=== PATIENT | female | born 1925 | race Caucasian/White ===

== ENCOUNTER 2016-05-31 17:51 | Inpatient (IN) | payer BC ==
--- NOTE | ~2016-05-31 | DS ---
Discharge Summary [id number] [place]. [address] NAME: JEREMI LOERA : [birth year] STATUS : DIS IN PAT#: [id number] AGE: 89 ADM/REG DATE : 05/31/16 MR#: [id number] REPORT SERV DATE: 06/04/16 DICTATED BY: MACK CHAN DATE: 06/03/16 REPORT STATUS : Draft TRANSCRIBED BY: MODL DATE: 06/03/16 ADMISSION DATE: 05/31/2016 DISCHARGE DATE: 06/03/2016 PRINCIPAL DIAGNOSIS: Humerus fracture. SECONDARY DIAGNOSIS: 1. Gait disorder. 2. Atrial fibrillation. 3. History of stroke with late effect. 4. Vascular dementia. 5. Leukocytosis. HISTORY OF PRESENT ILLNESS: Please see Dr. Calvo's dictation on 05/31/2016. HOSPITAL COURSE: Admitted with a fall, hip pain, fracture and shoulder pain with a positive for humerus fracture. The patient was unable to get up independently. It was felt she was best for usp facility and she received physical and occupational therapy and was qualified for SNF on 06/03/2016 to [facility] in satisfactory condition. Continuing physical/occupational therapy per facility. Diet as tolerated. Activity as tolerated with the following medications: Coumadin, Anoro, Toprol, DuoNebs p.r.n., Lipitor, Colace. She was reduced on her baclofen due to frequent issues with intolerance in the elderly and so that was reduced to 5 mg b.i.d. She had Lortab p.r.n. Follow up with Dr. Chito Stark following a discharge from usp facility. TEJAS/JACOB Mack Chan M.D. / [id number] CC: Tejinder Martínez, [facility]
--- NOTE | ~2016-05-31 | HP ---
History And Physical [id number] [facility] [place]. [address] NAME: JEREMI HOYT : [birth year] STATUS : ADM IN [facility]#: [id number] AGE: 89 ADM/REG DATE : 05/31/16 MR#: [id number] REPORT SERV DATE: 05/31/16 DICTATED BY: SCOTT RATLIFF DATE: 05/31/16 REPORT STATUS : Draft TRANSCRIBED BY: JCAOB DATE: 05/31/16 DATE OF ADMISSION: 05/31/2016 CHIEF COMPLAINT: One fall at home and right hip pain. HISTORY OF PRESENT ILLNESS: This is an 89-year-old female with a history of CVA in the past with residual deficits and expressive aphasia who lives in assisted living facility, has chronic atrial fibrillation and is on chronic anticoagulation with warfarin who presents to the emergency room at [facility] after she sustained a fall today. History is obtained from the patient's who is at bedside, and reviewing data available on the [facility] system. According to available data, Mrs. Hoyt was in her usual state of health and according to her , she is quite capable of doing activities of daily living especially going to the bathroom and taking care of her personal needs. He does have to help her with her clothes and buttons and stuff like that. Anyway today, she was in the bathroom on the commode and apparently must have fallen down, hitting her head on the wall because he heard her fall and could not get up because of right hip pain. Help was summoned, and the patient was subsequently brought to the emergency room at [facility]. In the emergency room, initial workup including skeletal survey showed a negative CT scan of her head. Chest x-ray was unremarkable but x-ray of her hip among all the other x-rays showed right humeral head fracture. Hospitalist Service is asked to admit her for further evaluation and treatment. At the time of my evaluation, she denied any chest pain, palpitations, or orthopnea. She had no cough, hemoptysis, night sweats, or weight loss. She has not had any recent loss of consciousness although she did fall down today. No history of recent fevers, chills, nausea, vomiting, diarrhea, dysuria. No history of hematemesis, hematochezia, or hematuria according to her . No other history of recent travel or exposures other than those mentioned above. PAST MEDICAL HISTORY: Significant for history of prior CVA with residual deficits including expressive aphasia, history of atrial fibrillation on chronic anticoagulation, failure to thrive, and recurrent urinary tract infections. SOCIAL HISTORY: She has a prior history of tobacco use and has a lifetime of 50 pack-year tobacco use. She has no alcohol or recreational drug use. FAMILY HISTORY: Noncontributory. MEDICATIONS: Medications at home were reviewed by me in the chart today and reordered by me. REVIEW OF SYSTEMS: As in history of present illness. All other systems were reviewed in detail via her and seems unremarkable. History And Physical [address] [address] NAME: JEREMI HOYT : [birth year] STATUS : ADM IN [facility]#: [id number] AGE: 89 ADM/REG DATE : 05/31/16 MR#: [id number] REPORT SERV DATE: 05/31/16 DICTATED BY: SCOTT RATLIFF DATE: 05/31/16 REPORT STATUS : Draft TRANSCRIBED BY: JACOB DATE: 05/31/16 PHYSICAL EXAMINATION: GENERAL: This is a pleasant 89-year old, not in any acute distress. She does have some discomfort due to her hip pain. She is alert, awake, oriented to time, place, and person. HEENT: Her head is atraumatic, normocephalic. Pupils are equal, reacting to light and accommodating. External ocular muscles are intact. Membranes are moist and pink. Sclerae are nonicteric. NECK: Supple with no jugular venous distention, lymphadenopathy, or thyromegaly. LUNGS: Clear to auscultation with no wheezes, rubs, or crackles. HEART: Heart sounds were regular with no murmurs, rubs, or gallops. ABDOMEN: Soft, nontender. Bowel sounds are present. There was no organomegaly. EXTREMITIES: Showed no cyanosis, clubbing, or edema. NEUROLOGIC: Grossly intact. No focal sensory or motor deficits. Higher functions appeared intact. She has expressive aphasia. VITAL SIGNS: Her temperature today was 98.3, pulse 65, respirations 18 a minute, blood pressure was 133/63. Oxygen saturations were 99%, breathing 2 L of oxygen via nasal cannula. LABORATORY DATA: Reviewed on the [facility] system showed a sodium of 141, potassium 4.6, chloride 103, and CO2 of 26. BUN was 23 with a creatinine of 0.66 and blood glucose was 117. Her troponin was 0.02, [place] [address], hemoglobin was 11.9, hematocrit 36.4 and platelet count was 279,000. Urinalysis was negative for leukocyte esterase, nitrite was negative. There were [address] W[address]s. Films of the CT scan of her head and other x-rays done in the emergency room was reviewed on the PAC system today and interpreted by me. CT of the head was unremarkable. Chest x-ray films showed normal bony architecture with no lobar consolidations or effusions. X-ray of the hip showed right humeral head fracture. Again, prothrombin time was 29.5 with an INR of 2.8 today. IMPRESSION: 1. Low mechanical fall at home. 2. Right hip pain. 3. Right hip fracture. 4. Coagulopathy. 5. History of recurrent urinary tract infections. 6. Prior CVA with residual deficits and aphasia. 7. Leukocytosis. 8. Atrial fibrillation, on anticoagulation. PLAN: We will admit Mrs. Hoyt to the Hospitalist Service and med/surg tele bed. We will get blood urine and sputum cultures, but meanwhile start her on ceftriaxone intravenously for antibiotic coverage. We will keep her n.p.o. for now and establish pain control with small doses of Dilaudid given intravenously. The patient's informs us that she cannot tolerate morphine. We will go ahead and consult Orthopedic Service to see her in the morning. We will also give her 5 mg of vitamin K intravenously and check her prothrombin time in the morning. Meanwhile, we will start her on IV fluids for maintenance therapy, History And Physical [address] [address] NAME: JEREMI HOYT : [birth year] STATUS : ADM IN [facility]#: [id number] AGE: 89 ADM/REG DATE : 05/31/16 MR#: [id number] REPORT SERV DATE: 05/31/16 DICTATED BY: SCOTT RATLIFF DATE: 05/31/16 REPORT STATUS : Draft TRANSCRIBED BY: MODL DATE: 05/31/16 check her chemistry, CBC, and electrolytes in the morning and replete as needed. She will be on SCDs for DVT prophylaxis while she is here. We will also place her on bronchodilator treatments, and continue her supplemental oxygen therapy. I have discussed the above plans with the patient and her , and they agree with the above plans. Hospitalist Service will be following her during her stay here. /JACOB Scott Ratliff M.D. / [id number] CC: Tejinder Barber
[~2016-05-31 17:51] MED LIST: CEFT5 PO; COUMADIN3 MG PO; COZ25 PO; CRESTOR5 MG PO; FLORANEX PO; L20 PO; PROBIOTIC GUMMY PO; TOPXL50 PO
[2016-05-31 18:49] LABS: BASOPHILS 0.2 %; BASOPHILS ABSOLUTE 0.03 10/3/uL (0.0-0.16); EOSINOPHILS 0 %; HEMATOCRIT 36.4 % (36.0-48.0); HEMOGLOBIN 11.9 g/dL (12.0-16.0); IMMATURE GRANULOCYTES 0.6 %; IMMATURE GRANULOCYTES ABSOLUTE 0.12 10/3/uL (0.0-0.11); LYMPHOCYTES 5.1 %; MEAN PLATELET VOLUME 10.9 fL (9.2-13.0); MONOCYTES 4.8 %; MONOCYTES ABSOLUTE 0.94 10/3/uL (0.21-1.20); NEUTROPHILS 89.3 %; NEUTROPHILS ABSOLUTE 17.44 10/3/uL (2.02-8.40); PLATELET COUNT 279 10/3/uL (150-400); RBC DISTRIBUTION WIDTH 13.7 % (12.0-16.0); RED CELL COUNT 3.84 10/6/uL (4.0-5.6)
[2016-05-31 18:50] LABS: ER CBC TAT 0 Hrs 12 Mins; MANUAL DIFF NO %; MEAN CORPUS HGB CONC 32.7 g/dL (32.0-36.0); MEAN CORPUSCULAR VOLUME 94.8 fL (80-100); WHITE BLOOD CELLS 19.5 10/3/uL (4.5-10.5)
[2016-05-31 18:59] LABS: INTERNATIONAL NORMAL RATI 2.8 UNITS (-); PARTIAL THROMBO TIME 40.4 SEC (22.5-37.2)
[2016-05-31 19:00] LABS: PROTIME (NOT ORD) 29.5 SEC (12.0-14.5)
[2016-05-31 19:06] LABS: BUN (BLOOD UREA NITROGEN) 23 MG/DL (6-23); CALCIUM, SERUM 8.5 MG/DL (8.5-10.4); CHEST PAIN PROFILE TAT 0 Hrs 28 Mins; CHLORIDE, SERUM 103 MMOL/L (96-112); CREATININE 0.66 MG/DL (0.55-1.02); GFR AFRICAN AMERICAN 91 ML/MIN (>=60); GFR NON AFRICAN AMERICAN 79 ML/MIN (>=60); POTASSIUM, SERUM 4.6 MMOL/L (3.5-5.3); SODIUM, SERUM 141 MMOL/L (135-148); TROPONIN I <0.02 NG/ML (<0.05)
[2016-05-31 19:10] LABS: CO2 (CARBON DIOXIDE) 26 MMOL/L (24-34); GLUCOSE, SERUM 117 MG/DL (60-99)
[2016-05-31] MEDS ORDERED: ANOROELLIPTA INH (20:04)
[2016-05-31] MEDS ORDERED: DSS PO (20:05)
[2016-05-31] MEDS ORDERED: LIOR10 PO (20:05)
[2016-05-31] MEDS ORDERED: TOPXL25 PO (20:06)
[2016-05-31] MEDS ORDERED: COZ25 PO (20:06)
[2016-05-31] MEDS ORDERED: COUMADIN6 MG PO (20:07)
[2016-05-31] MEDS ORDERED: CRESTOR5 MG PO (20:08)
[2016-05-31] MEDS ORDERED: C5 PO (20:08)
[2016-05-31] MEDS ORDERED: NYSTATPOW TOP (20:09)
[2016-05-31 20:15] LABS: ASCORBIC ACID (UR NOT ORDER) NEG (NEG); BILIRUBIN, URINE NEGATIVE (NEG); ER URINALYSIS TAT 0 Hrs 00 Mins; KETONE, URINE NEGATIVE (NEG); LEUKOCYTE ESTERASE(NOT OR NEG (NEG); NITRITE (URINE) NEG (NEG); WBC (NOT ORDERED) (RFLEX) 27 (0-5)
[2016-06-01 07:13] LABS: BASOPHILS 0.3 %; BASOPHILS ABSOLUTE 0.03 10/3/uL (0.0-0.16); EOSINOPHILS 0.3 %; EOSINOPHILS ABSOLUTE 0.04 10/3/uL (0.0-0.53); HEMOGLOBIN 10.7 g/dL (12.0-16.0); IMMATURE GRANULOCYTES 0.3 %; IMMATURE GRANULOCYTES ABSOLUTE 0.03 10/3/uL (0.0-0.11); LYMPHOCYTES 12.8 %; LYMPHOCYTES ABSOLUTE 1.51 10/3/uL (0.67-4.30); MEAN CORPUS HGB CONC 32.8 g/dL (32.0-36.0); MEAN CORPUSCULAR HEMOGLOB 31.5 pg (26.0-34.0); MEAN CORPUSCULAR VOLUME 95.9 fL (80-100); MEAN PLATELET VOLUME 10.1 fL (9.2-13.0); MONOCYTES 11.2 %; MONOCYTES ABSOLUTE 1.32 10/3/uL (0.21-1.20); NEUTROPHILS 75.1 %; NEUTROPHILS ABSOLUTE 8.86 10/3/uL (2.02-8.40); PLATELET COUNT 230 10/3/uL (150-400); RBC DISTRIBUTION WIDTH 13.9 % (12.0-16.0); WHITE BLOOD CELLS 11.8 10/3/uL (4.5-10.5)
[2016-06-01 07:17] LABS: HEMATOCRIT 32.6 % (36.0-48.0); MANUAL DIFF NO %
[2016-06-01 07:22] LABS: BUN (BLOOD UREA NITROGEN) 21 MG/DL (6-23); CALCIUM, SERUM 8.1 MG/DL (8.5-10.4); CHLORIDE, SERUM 106 MMOL/L (96-112); CO2 (CARBON DIOXIDE) 24 MMOL/L (24-34); CREATININE 0.67 MG/DL (0.55-1.02); GFR AFRICAN AMERICAN 91 ML/MIN (>=60); GFR NON AFRICAN AMERICAN 78 ML/MIN (>=60); GLUCOSE, SERUM 100 MG/DL (60-99); PHOSPHORUS, SERUM 3.9 MG/DL (2.5-4.5); POTASSIUM, SERUM 4.5 MMOL/L (3.5-5.3); SODIUM, SERUM 142 MMOL/L (135-148)
[2016-06-01 07:26] LABS: INTERNATIONAL NORMAL RATI 1.6 UNITS (-)
[2016-06-01 07:35] LABS: PARTIAL THROMBO TIME 33.9 SEC (22.5-37.2)
[2016-06-02 06:19] LABS: BASOPHILS 0.5 %; BASOPHILS ABSOLUTE 0.07 10/3/uL (0.0-0.16); EOSINOPHILS 0.8 %; EOSINOPHILS ABSOLUTE 0.11 10/3/uL (0.0-0.53); HEMATOCRIT 31.5 % (36.0-48.0); HEMOGLOBIN 10.4 g/dL (12.0-16.0); IMMATURE GRANULOCYTES 0.3 %; IMMATURE GRANULOCYTES ABSOLUTE 0.04 10/3/uL (0.0-0.11); LYMPHOCYTES 12.3 %; LYMPHOCYTES ABSOLUTE 1.69 10/3/uL (0.67-4.30); MEAN CORPUSCULAR HEMOGLOB 31.1 pg (26.0-34.0); MEAN CORPUSCULAR VOLUME 94.3 fL (80-100); MEAN PLATELET VOLUME 10.2 fL (9.2-13.0); MONOCYTES 10.3 %; MONOCYTES ABSOLUTE 1.41 10/3/uL (0.21-1.20); NEUTROPHILS 75.8 %; NEUTROPHILS ABSOLUTE 10.42 10/3/uL (2.02-8.40); PLATELET COUNT 202 10/3/uL (150-400); RBC DISTRIBUTION WIDTH 14.1 % (12.0-16.0); RED CELL COUNT 3.34 10/6/uL (4.0-5.6); WHITE BLOOD CELLS 13.7 10/3/uL (4.5-10.5)
[2016-06-02 06:27] LABS: MANUAL DIFF NO %
[2016-06-02 06:34] LABS: CALCIUM, SERUM 8.2 MG/DL (8.5-10.4); CHLORIDE, SERUM 106 MMOL/L (96-112); CO2 (CARBON DIOXIDE) 23 MMOL/L (24-34); CREATININE 0.51 MG/DL (0.55-1.02); GFR AFRICAN AMERICAN 100 ML/MIN (>=60); GFR NON AFRICAN AMERICAN 86 ML/MIN (>=60); GLUCOSE, SERUM 108 MG/DL (60-99); POTASSIUM, SERUM 4.1 MMOL/L (3.5-5.3); SODIUM, SERUM 140 MMOL/L (135-148)
[2016-06-02 06:35] LABS: BUN (BLOOD UREA NITROGEN) 14 MG/DL (6-23)
[2016-06-02 06:44] LABS: INTERNATIONAL NORMAL RATI 1.3 UNITS (-)
[2016-06-02 06:45] LABS: PROTIME (NOT ORD) 15.9 SEC (12.0-14.5)
[2016-06-03 04:51] LABS: INTERNATIONAL NORMAL RATI 1.4 UNITS (-); PROTIME (NOT ORD) 17.3 SEC (12.0-14.5)
== END 2016-06-03 18:49 | DRG 562 ==
LOC: ER 17:51 → 1SO 20:43
PROVIDERS: Hospitalist; Internal Medicine Pulmonary Disease; Physician Assistant
DX: S42.211A Unspecified displaced fracture of surgical neck of right humerus, initial encounter for closed fracture (principal); S72.001A Fracture of unspecified part of neck of right femur, initial encounter for closed fracture; N39.0 Urinary tract infection, site not specified; D68.9 Coagulation defect, unspecified; I48.2 Chronic atrial fibrillation; F01.50 Vascular dementia, unspecified severity, without behavioral disturbance, psychotic disturbance, mood disturbance, and anxiety; R62.7 Adult failure to thrive; E78.5 Hyperlipidemia, unspecified; I69.320 Aphasia following cerebral infarction; T45.515A Adverse effect of anticoagulants, initial encounter; J44.9 Chronic obstructive pulmonary disease, unspecified; M25.551 Pain in right hip; Z66 Do not resuscitate; R29.6 Repeated falls; W18.11XA Fall from or off toilet without subsequent striking against object, initial encounter; Z87.891 Personal history of nicotine dependence; Z79.01 Long term (current) use of anticoagulants; Z87.440 Personal history of urinary (tract) infections; Z91.81 History of falling
CPT/HCPCS: 70450; 71010; 73060-RT; 73080-RT; 73110-RT; 73502-RT; 73560-RT; 80048; 81001; 83735; 84100; 84484; 85025; 85610; 85730; 87040; 87086; 93005; 96374; 97110-GP; 97161-GP; 97166-GO; 97530-GP; 99285; A9270-GY; G0378; J1170; J2405; J3430